=== PATIENT | female | born 1970 | race American Indian/Alaskan Native ===

== ENCOUNTER 2019-01-01 08:43 | Outpatient (CLI) | payer OTHER ==
--- NOTE | 2019-01-01 11:57 | Mammography Report ---
DIGITAL SCREENING MAMMOGRAM WITH CAD, 01/01/2019 INDICATION: Routine screening mammography. TECHNIQUE: Digital bilateral 2D mammography was obtained in the craniocaudal and mediolateral obliq ue projections. This examination was interpreted with the benefit of Computer-Aided Detection analysi s. COMPARISON: 12/30/2017 and 12/20/2016 FINDINGS: Breast Density: The breasts are heterogeneously dense, which may obscure small masses. Right asymmetries on both views require additional imaging. No architectural distortion or suspicious calcifications of the right breast. There is no evidence of dominant mass, suspicious calcifications or architectural distortion in the left breast. IMPRESSION: Right asymmetries requiring additional imaging. Recommend recall for right spot compressi on views and right breast ultrasound if needed. Follow up recommendation: Special View: Spot Category 0: Incomplete. Needs additional imaging evaluation and/or prior mammograms for comparison. A "normal" or negative report should not discourage follow up or biopsy of a clinically significant f inding. A written summary of these findings will be mailed to the patient. The patient will be entered into a mammography reporting system which will generate a reminder letter for the patient's next appointmen t at the appropriate interval. The [employer] recommends yearly mammograms starting at age 40 and continuing as l suzette as a woman is in good health. Breast MRI is recommended for women with an approximate 20-25% or greater lifetime risk of breast cancer, including women with a strong family history of breast or ova caprice cancer or who have been treated for Hodgkin's disease. Signer Name: Ryan Sorto MD Signed: 01/01/2019 11:52 AM Workstation Name: [id number]
== END 2019-01-01 08:44 | disposition home or self-care (01) ==
LOC: MAMMO 08:43
PROVIDERS: ATTEND Internal Medicine
DX: Z12.31 Encounter for screening mammogram for malignant neoplasm of breast (principal)
CPT/HCPCS: 77067

== ENCOUNTER 2019-01-22 08:18 | Outpatient (CLI) | payer OTHER ==
--- NOTE | 2019-01-22 09:24 | Mammography Report ---
DIGITAL RIGHT DIAGNOSTIC MAMMOGRAM WITHOUT CAD, 01/22/2019 INDICATION: R92.2. Recall to evaluate mammographic asymmetries. TECHNIQUE: Digital right mammographic imaging was performed. This examination was interpreted with the benefit of Computer-aided Detection analysis. COMPARISON: 01/01/2019 screening mammogram. Breast Density: The breasts are heterogeneously dense, which may obscure small masses. FINDINGS: Lateral and spot compression MLO and CC views were performed and are negative. No suspiciou s finding. A benign intraparenchymal lymph node in the upper breast. IMPRESSION: No mammographic evidence of malignancy. Follow up recommendation: Routine BI-RADS Category 2: Benign. A "normal" or negative report should not discourage follow up or biopsy of a clinically significant f inding. A written summary of these findings will be mailed to the patient. The patient will be entered into a mammography reporting system which will generate a reminder letter for the patient's next appointmen t at the appropriate interval. According to the [employer], yearly mammograms are recommended starting at age 40 and continuing as long as a woman is in good health. Breast MRI is recommended for women with an karolyn roximately 20-25% or greater lifetime risk of breast cancer, including women with a strong family his tory of breast or ovarian cancer and women who have been treated for Hodgkin's disease. Signer Name: Ryan Sorto MD Signed: 01/22/2019 9:20 AM Workstation Name: [id number]
== END 2019-01-22 08:19 | disposition home or self-care (01) ==
LOC: MAMMO 08:18
PROVIDERS: ATTEND Obstetrics & Gynecology
DX: R92.2 Inconclusive mammogram (principal)
CPT/HCPCS: 77066

== ENCOUNTER 2020-01-04 09:25 | Outpatient (CLI) | payer OTHER ==
--- NOTE | 2020-01-04 17:41 | Mammography Report ---
DIGITAL SCREENING MAMMOGRAM WITH CAD, 01/04/2020 CLINICAL INFORMATION / INDICATION: Routine screening mammography. SCREENING MAMMO TECHNIQUE: Digital bilateral 2D mammography was obtained in the craniocaudal and mediolateral obliqu e projections. This examination was interpreted with the benefit of Computer-Aided Detection analysis . COMPARISON: Prior mammograms 01/01/2019 and 12/30/2017 FINDINGS: Breast Density: The breasts are extremely dense, which lowers the sensitivity of mammography. No dominant mass, suspicious calcifications, or architectural distortion in the left breast. There is a 1.7 cm oval mass with indistinct margins in the posterior upper outer quadrant of the righ t breast near the level of the right axillary tail which requires further evaluation. IMPRESSION: 1. An oval mass in the right breast requires further evaluation with targeted ultrasound and addition al views if needed. Follow up recommendation: Ultrasound BI-RADS Category 0: Incomplete. Needs additional imaging evaluation and/or prior mammograms for gris rison. A "normal" or negative report should not discourage follow up or biopsy of a clinically significant f inding. A written summary of these findings will be mailed to the patient. The patient will be entered into a mammography reporting system which will generate a reminder letter for the patient's next appointmen t at the appropriate interval. The [employer] recommends yearly mammograms starting at age 40 and continuing as l suzette as a woman is in good health. Breast MRI is recommended for women with an approximate 20-25% or greater lifetime risk of breast cancer, including women with a strong family history of breast or ova caprice cancer or who have been treated for Hodgkin's disease. Signer Name: Kalina Barillas MD Signed: 01/04/2020 5:37 PM Workstation Name: [id number]
== END 2020-01-04 09:26 | disposition home or self-care (01) ==
LOC: MAMMO 09:25
PROVIDERS: ATTEND Nurse Practitioner Obstetrics & Gynecology
DX: Z12.31 Encounter for screening mammogram for malignant neoplasm of breast (principal); N63.10 Unspecified lump in the right breast, unspecified quadrant
CPT/HCPCS: 77067

== ENCOUNTER 2020-01-26 09:19 | Outpatient (CLI) | payer OTHER ==
--- NOTE | 2020-01-26 10:39 | Ultrasound Report ---
ULTRASOUND BREAST RIGHT LIMITED, 01/26/2020 CLINICAL INFORMATION / INDICATION: ABNORMAL MAMMO. TECHNIQUE: Targeted ultrasound evaluation was performed of the area of interest. COMPARISON: Recent mammogram 01/04/2020 FINDINGS: Sonographic evaluation of the right upper outer breast demonstrates a simple cyst at 11:00, 8 cm from nipple, measuring 15 mm. This correlates with mammographic findings. Incidentally noted is a small solid appearing round mass with irregular margins at 10:30, 9 cm from t he nipple measuring 9 x 7 mm. IMPRESSION: 1. Incidental finding of small irregular solid mass at 10:30. Ultrasound guided biopsy is recommended . 2. 15 mm simple cyst is present at 11:00 which does account for the mammographic abnormality. Follow up recommendation: Biopsy BI-RADS Category 4: Suspicious for Malignancy. A normal or "negative" report should not preclude biopsy or follow-up of a clinically suspicious find ing. Signer Name: Nichole Oropeza MD Signed: 01/26/2020 10:34 AM Workstation Name: [id number]
--- NOTE | 2020-01-26 11:35 | Mammography Report ---
DIGITAL DIAGNOSTIC MAMMOGRAM WITH CAD , 01/26/2020 CLINICAL INFORMATION / INDICATION: ABN MAMMO TECHNIQUE: Digital right mammographic imaging was performed. Spot compression views were obtained. This examination was interpreted with the benefit of Computer-aided Detection analysis. COMPARISON: Recent mammogram 01/04/2020 and right breast ultrasound performed earlier today. FINDINGS: Breast Density: The breasts are heterogeneously dense, which may obscure small masses. Additional spot compression views were obtained following abnormal finding on right breast ultrasound . The small solid irregular mass seen in the 10-11:00 location of the right breast does become eviden t with spot compression imaging. This mass has irregular margins and is concerning for the presence o f a small breast cancer. Mass measures approximately 9 mm. IMPRESSION: 9 mm solid irregular mass is present in the right breast upper outer quadrant at 10-11:00 , posterior depth. This is the same mass seen on ultrasound performed earlier today. Recommend ultras ound-guided biopsy. Follow up recommendation: Biopsy BI-RADS Category 4: Suspicious for Malignancy. A "normal" or negative report should not discourage follow up or biopsy of a clinically significant f inding. A written summary of these findings will be mailed to the patient. The patient will be entered into a mammography reporting system which will generate a reminder letter for the patient's next appointmen t at the appropriate interval. According to the [employer], yearly mammograms are recommended starting at age 40 and continuing as long as a woman is in good health. Breast MRI is recommended for women with an karolyn roximately 20-25% or greater lifetime risk of breast cancer, including women with a strong family his tory of breast or ovarian cancer and women who have been treated for Hodgkin's disease. Signer Name: Nichole Oropeza MD Signed: 01/26/2020 11:31 AM Workstation Name: [id number]
== END 2020-01-26 09:20 | disposition home or self-care (01) ==
LOC: MAMMO 09:19
PROVIDERS: ATTEND Internal Medicine
DX: N60.01 Solitary cyst of right breast (principal); N63.10 Unspecified lump in the right breast, unspecified quadrant; N63.11 Unspecified lump in the right breast, upper outer quadrant

== ENCOUNTER 2020-03-02 08:26 | Outpatient (CLI) | payer OTHER ==
--- NOTE | 2020-03-02 09:56 | Ultrasound Report ---
ULTRASOUND GUIDED RIGHT BREAST BIOPSY, 03/02/2020 CLINICAL INFORMATION / INDICATION: Right breast mass. COMPARISON: 01/26/2020 PROCEDURE: Risks, benefits, and indications to the procedure were discussed with the patient in detail, includin g bleeding, infection, hematoma formation, and inadequate tissue sampling. The patient agreed to proc eed with both verbal and written consent. A timeout procedure was performed with two patient identifi ers. The breast was prepped and draped in the usual sterile fashion. Lidocaine 1% with and without epineph rine were used for local anesthesia. Under direct ultrasound guidance, multiple core samples were obt ained of the right breast mass. A biopsy marker was then placed. Biopsy device was removed and hemos tasis achieved with manual pressure. A sterile dressing was applied to the skin. The patient tolerated the procedure without difficulty. No complications were encountered. Postbiopsy instructions were discussed with the patient and given in writing. Specimens were sent to pathology. IMPRESSION: 1. Technically successful ultrasound guided right breast biopsy. Biopsy results are pending and will be reported in an addendum. Signer Name: Deep Awad MD Signed: 03/02/2020 9:51 AM Workstation Name: [id number]
--- NOTE | 2020-03-02 11:24 | Mammography Report ---
DIGITAL DIAGNOSTIC MAMMOGRAM WITH CAD CONVENTIONAL, 03/02/2020 CLINICAL INFORMATION / INDICATION: Status post ultrasound-guided right breast biopsy. TECHNIQUE: Digital right mammographic imaging was performed. This examination was interpreted with the benefit of Computer-aided Detection analysis. COMPARISON: Ultrasound-guided right breast biopsy performed on the same day. Diagnostic right mammogr am from 01/26/2020. FINDINGS: Breast Density: The breast is heterogeneously dense, which may obscure small masses. Expected postbiopsy changes are seen in the upper outer right breast with concordant clip placement. IMPRESSION: Concordant clip placement in the right breast at the site of the previously described mas s. Please correlate with the pathology results. Follow up recommendation: Clinical exam Post biopsy imaging. A "normal" or negative report should not discourage follow up or biopsy of a clinically significant f inding. A written summary of these findings will be mailed to the patient. The patient will be entered into a mammography reporting system which will generate a reminder letter for the patient's next appointmen t at the appropriate interval. According to the [employer], yearly mammograms are recommended starting at age 40 and continuing as long as a woman is in good health. Breast MRI is recommended for women with an karolyn roximately 20-25% or greater lifetime risk of breast cancer, including women with a strong family his tory of breast or ovarian cancer and women who have been treated for Hodgkin's disease. Signer Name: Deep Awad MD Signed: 03/02/2020 11:20 AM Workstation Name: [id number]
== END 2020-03-02 08:27 | disposition home or self-care (01) ==
LOC: SPVWC 08:26
PROVIDERS: ATTEND Nurse Practitioner Obstetrics & Gynecology
DX: N63.10 Unspecified lump in the right breast, unspecified quadrant (principal); R92.2 Inconclusive mammogram; R92.8 Other abnormal and inconclusive findings on diagnostic imaging of breast
CPT/HCPCS: 88305

== ENCOUNTER 2020-04-05 08:40 | Outpatient (CLI) | payer OTHER ==
--- NOTE | 2020-04-06 08:25 | Magnetic Resonance Report ---
Bilateral breast MR without and with contrast. History: Recently diagnosed right breast malignancy, assess extent of disease. Comparison: 03/07/2020, 03/02/2020, 01/26/2020, 01/04/2020. Technique: Multiplanar multisequence MR images of the breast were obtained before and after the intra venous administration of intravenous contrast. Post processing analysis and review was performed on a separate computer workstation. Findings: Breast composition is heterogeneously dense. There is mild background parenchymal enhancement within both breasts. RIGHT BREAST: There is a 1 x 0.7 x 0.9 cm enhancing mass within the right upper outer posterior breas t. This represents the site of known biopsy-proven malignancy. A biopsy marker is located within the superior posterior aspect of this mass. No evidence of skin or pectoralis muscle involvement. No add itional abnormal enhancement within the right breast or findings to suggest further extent of disease . An adjacent benign-appearing cyst is noted slightly more superiorly. LEFT BREAST: No discrete enhancing mass, dominant focus, or other abnormal enhancement within the lef t breast. No abnormal axillary or internal mammary lymph nodes. Impression: Known biopsy-proven malignancy within the right breast at the 10:30 posterior position measures up to 1 cm on MRI. No additional findings to suggest further extent of disease or additional suspicious fi ndings within either breast. BIRADS 6: Known biopsy proven malignancy. A normal MRI does not exclude the presence of some forms of breast malignancy as literature reports s uggest that some forms of ductal carcinoma in situ or lobular carcinoma, particularly, may not be det ected on MRI. The sensitivity and specificity of MRI for cancers under 5 mm may be reduced. MRI does not replace the recommendation for annual conventional mammographic evaluation and should be used as an adjunct to mammography and physical examination as necessary. Signer Name: Terrance Randolph MD Signed: 04/06/2020 8:20 AM Workstation Name: [id number]
== END 2020-04-05 08:41 | disposition home or self-care (01) ==
LOC: SPVIMAG 08:40
PROVIDERS: ATTEND Surgery
DX: C50.411 Malignant neoplasm of upper-outer quadrant of right female breast (principal); N63.11 Unspecified lump in the right breast, upper outer quadrant
CPT/HCPCS: A9577; C8908; 77049

== ENCOUNTER 2020-05-18 08:54 | Day surgery (SDC) | payer OTHER ==
--- NOTE | 2020-05-16 09:35 | Anesthesia Consultation ---
Anesthesia Consult and Med Hx Date of service: 05/18/20 - Airway Anesthetic Teeth Evaluation: Good ROM Head & Neck: Adequate Mental/Hyoid Distance: Adequate Mallampati Class: Class I Intubation Access Assessment: Good - Pre-Operative Health Status ASA Pre-Surgery Classification: ASA2 Proposed Anesthetic Plan: General Nerve Block: PECS/ES - Pulmonary Hx Smoking: No Hx Asthma: Yes Hx Respiratory Symptoms: No (Climbs stairs) COPD: No Hx Pneumonia: No Hx Sleep Apnea: No - Cardiovascular System Hx Hypertension: No Hx Heart Attack/AMI: No Hx Pacemaker: No Hx Internal Defibrillator: No Hx Heart Murmur: No - Central Nervous System Hx Neuromuscular Disorder: Yes (RLE neuropathy) Hx Seizures: No Hx Back Pain: No Hx Psychiatric Problems: No - Gastrointestinal Hx Ulcer: No (H Pylori) Hx Gastroesophageal Reflux Disease: Yes (Diverticulosis) - Endocrine Hx End Stage Renal Disease: No Hx Cirrhosis: No Hx Liver Disease: No - Hematic Hx Anemia: No Hx Sickle Cell Disease: No - Other Systems Hx Alcohol Use: No Hx Substance Use: No Hx Cancer: Yes
[~2020-05-18 08:54] MED LIST: ACETAMINOPHEN 325 MG TAB PO NR; CELECOXIB 200 MG CAP PO NR; LACTATED RINGERS 1,000 ML IV SCH; MAGNESIUM OXIDE 400 MG TAB PO NR; MIDAZOLAM 2 MG/2 ML INJ IV NR; ceFAZolin/Water 2 GM/20 ML 2 GM/20 ML SYRINGE IV NR; fentaNYL 100 MCG/2 ML INJ IV NR
[2020-05-18] MEDS ORDERED: SODIUM CHLORIDE P/F VIAL 10 ML 10 ML ONE (10:07)
[2020-05-18] MEDS ORDERED: METHYLENE BLUE 50 MG/10 ML AMP ONE (10:07)
[2020-05-18] MEDS ORDERED: PHENYLEPHRINE/NS 1,000 MCG/10 ML SYRINGE (OR USE) IV ONE (10:09)
[2020-05-18] MEDS ORDERED: GLYCOPYRROLATE 0.4 MG/2 ML INJ ONE (10:09)
[2020-05-18] MEDS ORDERED: NEOSTIGMINE 10MG/10 ML INJ MDV ONE (10:09)
[2020-05-18] MEDS ORDERED: ROCURONIUM 50 MG/5 ML INJ IV ONE (10:09)
[2020-05-18] MEDS ORDERED: dexAMETHasone 20 MG/5 ML VIAL ONE (10:09)
[2020-05-18] MEDS ORDERED: LIDOCAINE MPF (2%) 20 MG/1 ML VIAL 5 ML ONE (10:09)
[2020-05-18] MEDS ORDERED: ONDANSETRON 4 MG/2 ML INJ ONE (10:09)
[2020-05-18] MEDS ORDERED: propofoL 200 MG/20 ML VIAL IV ONE (10:10)
[2020-05-18] MEDS ORDERED: fentaNYL 100 MCG/2 ML INJ ONE (10:10)
[2020-05-18] MEDS ORDERED: ONDANSETRON 4 MG/2 ML INJ IV PRN (10:14)
[2020-05-18] MEDS ORDERED: HYDROmorphone 1 MG/1 ML INJ IV PRN ×2 (10:14)
--- NOTE | 2020-05-18 10:14 | Anesthesia Day of Surgery ---
Anesthesia Day of Surgery - Day of Surgery Patient Examined: Yes Patient H&P Reviewed: Yes Patient is NPO: Yes
[2020-05-18] MEDS ORDERED: dexAMETHasone 4 MG/ML VIAL ONE (10:18)
[2020-05-18] MEDS ORDERED: BUPIVACAINE/PF (0.25%) 2.5 MG/ML 30 ML VIAL INFILTRATI ONE (10:18)
[2020-05-18] MEDS ORDERED: METHYLENE BLUE 50 MG/10 ML AMP IRRIGATION ONE (12:37)
[2020-05-18] MEDS ORDERED: WATER FOR IRRIG STERILE 1,500 ML BOTTLE IR ONE (12:37)
[2020-05-18] MEDS ORDERED: HYDROmorphone 1 MG/1 ML INJ ONE (13:42)
--- NOTE | 2020-05-18 14:09 | Operative Report ---
Operative Report Operative Report: Operative Report: May 18, 2020 Preoperative diagnosis: Right breast cancer of the upper outer quadrant Postoperative diagnosis: Same Procedure: Right breast partial mastectomy of the upper outer quadrant with SLNB and right breast complex cyst aspiration of the upper outer quadrant Surgeon: Bess Bess MD [employer] Professor: Dasia Vaca MD Anesthesia: General Findings: Right breast mass and clip present within radiograph specimen; x1 SLN; right complex cyst aspiration of 4 cc with complete resolution Complications: None EBL: Minimal Disposition: PACU in good condition Indications for operative procedure: This is a 50 year old lady with newly diagnosed right breast cancer of the upper outer quadrant, IDCA grade 1, Stage I [id number] ER/[place] positive (10:30 position 9 cm FN) and complex palpable cyst 11:00 position 9 cm FN. Recommendations are to proceed with breast conservation. She understands the role of adjuvant radiation therapy and Oncotype DX will be obtained by medical oncology. She wished to proceed with the above procedure. Patient also wished to proceed with right breast complex cyst aspiration. Procedure in detail: Anesthesia placed right pectoral block. Patient was then taken to the operating room. Gen. anesthesia was administered. The right nipple was injected with radioisotope and 1 cc of methylene blue dye. Right breast and axilla were prepped and draped in the normal sterile operative fashion. Timeout was performed. Attention was taken towards the right breast for cyst aspiration. Right breast complex cyst was palpable at the 11:00 position 9 cm FN; under ultrasound guidance, complex cyst was aspirated with completed resolution of 4 cc and cytology sent given bloody cyst contents. Attention was then taken towards the right axilla. Gamma probe was inserted into the axilla. The area of hot spot was identified. A right axillary incision was made with a 15 blade knife with dissection taken down to the subcutaneous tissues. The axillary fascia was opened with the Bovie cautery. One SLN was identified and dissected free with blue dye present. No additional remaining counts were present. Lymph node was sent to pathology for permanent processing. Hemostasis was obtained in the right axillary cavity. Axillary cavity was appropriately irrigated and suctioned. Hemostasis was noted. Axillary fascia was approximated and closed using interrupted 3-0 Vicryl and the skin brought together and closed using a running 4-0 Monocryl followed by skin affix. Attention was then taken towards the right breast. Ultrasound was used to betty the area of incision; known breast malignancy at 10:30 position 9 cm FN of 1 cm. An upper outer quadrant breast incision around 10:30 position was made with a 15 blade knife and dissection taken down to subcutaneous tissues. First began raising of the superior flap with dissection taken superiorly past the area of known malignancy and then taken down to the pectoralis muscle, followed by raising of the inferior flap, medial flap and lateral flap with all flaps taken past the area of known malignancy and then posteriorly down to the pectoralis muscle. The breast area of concern was appropriately removed posteriorly from the pectoralis muscle with the aid of the Bovie cautery. Specimen was marked and then sent to pathology and radiology; radiograph specimen with mass and clip present. Breast cavity was irrigated and hemostasis was obtained. Then proceeded with complex closure. The posterior deep breast tissues were then mobilized to approximate and cover pectoralis muscle; closed using interrupted 3-0 Vicryl. Deep breast tissues were then approximated and close using interrupted 3-0 Vicryl. The subcutaneous tissues were then approximated and closed using interrupted 3-0 Vicryl followed by closing of the skin with a running 4-0 Monocryl and skin affix. The patient tolerated surgery very well and she was awaken from anesthesia without any complication and transported to PACU in good condition.
--- NOTE | 2020-05-18 14:59 | Short Stay Summary ---
Short Stay Documentation Date of service: 05/18/20 - History H&P: obtained from office - Allergies and Medications Current Medications: Allergies No Known Allergies Allergy (Unverified 12/20/16 08:36) Home Medications Medication Instructions Recorded Confirmed Last Taken Type Albuterol Mdi (or & Nicu Only) 2 puff INHALATION PRN 05/11/20 05/11/20 7 Months Ago History [ProAir HFA Inhaler] ~10/19/19 Cholecalciferol (Vitamin D3) 5,000 unit PO DAILY 05/11/20 05/11/20 05/17/20 History [Vitamin D3] Culturelle Probiotic-Mv Gummy 1 cap PO DAILY 05/11/20 05/11/20 05/17/20 History Fexofenadine HCl [Bing Allergy] 180 mg PO 4XW 05/11/20 05/11/20 05/17/20 History Magnesium Oxide [Pedraza] 500 mg PO QDAY 05/11/20 05/11/20 05/17/20 History Metamucil 1 packet PO Q48HR 05/11/20 05/11/20 05/17/20 History Multivitamin/Iron/Folic Acid 1 tab PO 6XW 05/11/20 05/11/20 05/17/20 History [Centrum Women Tablet] Pantoprazole Sodium 40 mg PO 3XW 05/11/20 05/11/20 05/18/20 05:20 History Theophylline Anhydrous 300 mg PO BID 05/11/20 05/11/20 05/18/20 05:20 History Wheat Dextrin [Benefiber] 1 pack PO Q48HR 05/11/20 05/11/20 05/17/20 History Ibuprofen [Motrin 800 MG tab] 800 mg PO Q8HR PRN #12 tablet 05/18/20 Unknown Rx Active Medications Acetaminophen (Acetaminophen 325 Mg Tab) 650 mg PO ONCE NR Stop: 05/18/20 20:00 Last Admin: 05/18/20 10:25 Dose: 650 mg Documented by: Celecoxib (Celecoxib 200 Mg Cap) 200 mg PO PREOP NR Stop: 05/18/20 20:00 Last Admin: 05/18/20 10:25 Dose: 200 mg Documented by: Fentanyl (Fentanyl 100 Mcg/2 Ml Inj) 100 mcg IV ONCE NR Stop: 05/18/20 20:00 Hydromorphone HCl (Hydromorphone 1 Mg/1 Ml Inj) 0.25 mg IV Q10MIN PRN PRN Reason: Pain, Moderate (4-6) Stop: 05/18/20 23:00 Hydromorphone HCl (Hydromorphone 1 Mg/1 Ml Inj) 0.5 mg IV Q10MIN PRN PRN Reason: Pain , Severe (7-10) Stop: 05/18/20 23:00 Cefazolin Sodium (Ancef/Sterile Water 2 Gm/20 Ml) 2 gm in 20 mls @ 80 mls/hr IV PREOP NR; Protocol Stop: 05/18/20 23:01 Lactated Ringer's (Lactated Ringers) 1,000 mls @ 100 mls/hr IV DIRECT NORIS Last Admin: 05/18/20 10:30 Dose: 100 mls/hr Documented by: Magnesium Oxide (Magnesium Oxide 400 Mg Tab) 400 mg PO ONCE NR Stop: 05/18/20 20:00 Last Admin: 05/18/20 10:25 Dose: 400 mg Documented by: Midazolam HCl (Midazolam 2 Mg/2 Ml Inj) 2 mg IV PREOP NR Stop: 05/18/20 23:59 Ondansetron HCl (Ondansetron 4 Mg/2 Ml Inj) 4 mg IV ONCE PRN PRN Reason: Nausea And Vomiting Stop: 05/18/20 16:00 - Brief post op/procedure progress note Date of procedure: 05/18/20 Pre-op diagnosis: Right breast cancer upper outer quadrant Post-op diagnosis: same Procedure: Right partial mastectomy with SLNB Anesthesia: GETA Findings: Right breast mass with clip present; x1 SLN Surgeon: ALLISON SAUCEDA Estimated blood loss: minimal Pathology: list (right partial mastectomy; x1 sln) Specimen disposition: to lab Condition: stable - Disposition Condition at discharge: Good Disposition: DC- TO HOME OR SELFCARE Short Stay Discharge Plan Activity: other (no heavy lifting) Diet: regular Wound: keep clean and dry (may shower in 48 hours; no baths; wear breast binder) Follow up with: ALLISON SAUCEDA MD [Staff Physician] - 7 Days Prescriptions: Ibuprofen [Motrin 800 MG tab] 800 mg PO Q8HR PRN #12 tablet PRN Reason: Pain , Severe (7-10)
[2020-05-18 16:39] VITALS: BP 120/67
--- NOTE | 2020-05-18 17:20 | Post Anesthesia Evaluation ---
- Post Anesthesia Evaluation Patient Participated: Yes Airway Patent: Yes Stable Respiratory Function: Yes Nausea/Vomiting: No Temp > 96.8F: Yes Pain Manageable: Yes Adequeate Hydration: Yes Anesthesia Complications: No Block Receding Appropriately: Yes Patient on Ventilator: No
--- NOTE | 2020-05-19 18:34 | Mammography Report ---
RIGHT BREAST SPECIMEN RADIOGRAPH INDICATION / CLINICAL INFORMATION: RT BREAST CANCER. COMPARISON: Bilateral mammography 01/04/2020 and right breast mammogram 03/02/2020. FINDINGS: The targeted biopsy clip is contained within the center of the submitted breast specimen. There is no nspecific nodularity throughout the specimen. Signer Name: Bacilio Tucker MD Signed: 05/19/2020 6:29 PM Workstation Name: [id number]
== END 2020-05-18 08:55 | disposition home or self-care (01) ==
LOC: OR 08:54
PROVIDERS: ATTEND Surgery
DX: C50.411 Malignant neoplasm of upper-outer quadrant of right female breast (principal); I89.8 Other specified noninfective disorders of lymphatic vessels and lymph nodes; N60.01 Solitary cyst of right breast; K21.9 Gastro-esophageal reflux disease without esophagitis; R92.0 Mammographic microcalcification found on diagnostic imaging of breast; J45.909 Unspecified asthma, uncomplicated; Z17.0 Estrogen receptor positive status [ER+]; Z20.822 Contact with and (suspected) exposure to COVID-19; Z79.899 Other long term (current) drug therapy; Z98.890 Other specified postprocedural states
CPT/HCPCS: 19301; 38525; 38792; 64450; 76098; 76942; 78800; 81025; 88112; 88307; 88341; 88342; A9541; J0690; J1100; J1170; J2250; J2370; J2405; J2704; J2710; J3010; J7120; Q9968; U0003; 88333